=== PATIENT | male | born 1955 | race Two or more races ===

== ENCOUNTER 2017-02-21 15:30 | Emergency (ER) | payer OTHER ==
[~2017-02-21] VITALS: Ht 182.9 cm; Wt 74.8 kg
[2017-02-21] MEDS ORDERED: QUETIAPINE FUMA25 MG ORAL (15:42)
[2017-02-21] MEDS ORDERED: DILANTIN100 MG ORAL (15:42)
[2017-02-21] MEDS ORDERED: TRAZODONE HCL150 MG ORAL (15:42)
[2017-02-21] MEDS ORDERED: DEPAKOTE250 MG PO (15:42)
[2017-02-21 17:06] VITALS: BP 137/78
[2017-02-21 17:15] LABS: EOSINOPHILS % (AUTO) 0.7 % (0.0-3.0); LYMPHOCYTES % (AUTO) 31.2 % (20.0-45.0); MEAN CORPUSCULAR HEMOGLOBIN 31.5 PG (27.0-31.0); MEAN CORPUSCULAR HGB CONC 35.4 G/DL (32.0-36.0); MEAN CORPUSCULAR VOLUME 89 FL (80-99); MEAN PLATELET VOLUME 5.8 FL (6.5-10.1); MONOCYTES % (AUTO) 9.2 % (1.0-10.0); NEUTROPHILS % (AUTO) 57.9 % (45.0-75.0); PLATELET COUNT 194 K/UL (150-450); RED BLOOD COUNT 3.74 M/UL (4.70-6.10); RED CELL DISTRIBUTION WIDTH 15.3 % (11.6-14.8); WHITE BLOOD COUNT 4.4 K/UL (4.8-10.8)
[2017-02-21 17:37] LABS: ACETAMINOPHEN < 10 ug/mL (10-30); ALANINE AMINOTRANSFERASE 27 U/L (3-41); ALBUMIN/GLOBULIN RATIO 1.5 (1.0-2.7); ALCOHOL < 10 mg/dL; ANION GAP 17 (5-15); ASPARTATE AMINO TRANSFERASE 48 U/L (5-40); CALCIUM 9.9 mg/dL (8.6-10.2); CARBON DIOXIDE 25 mEQ/L (20-30); CHLORIDE 96 mEQ/L (98-107); CREATININE 1.1 mg/dL (0.7-1.2); GLOMERULAR FILTRATION RATE > 60 mL/min (>60); HEMOLYSIS 6; POTASSIUM 3.9 mEQ/L (3.4-4.9); SODIUM 138 mEQ/L (135-145); TOTAL PROTEIN 7.5 g/dL (6.6-8.7)
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
[2017-02-21 19:28] VITALS: BP 150/77
--- NOTE | 2017-02-22 12:11 | Emergency Room Report ---
History of Present Illness General Chief Complaint: Suicidal Source: Patient, Medical Record, PMD Present Illness HPI The pt is a 61 yo M with a hx of depression and drug use BIBA for possible SI. The pt himself called 911 due to an increased feeling of depression. He states that he has been taking all medications as directed and has seen psychiatrist within the past month. He denies previous attempts of suicide or self harm. He does admit to recent cocaine use. He states that he just feels tired and does not feel like doing anything with his life. He denies current thoughts of suicide or self harm or HI. He states he would like to go to a psychiatric facility. He denies any other sx such as N, V, F, chills, CP, SOB, dizziness, VAZQUEZ , abd pain, rash Allergies: Coded Allergies: No Known Allergies (Unverified , 02/21/17) Patient History Past Medical History: see triage record, psych hx - depression Past Surgical History: other Social History: Reports: drug use Reviewed Nursing Documentation: PMH: Agreed, PSxH: Agreed Nursing Documentation-PMH Past Medical History: No History, Except For History Of Psychiatric Problem: Yes - DEPRESSION, SUICIDAL IDEATION Hx Seizures: Yes Review of Systems All Other Systems: negative except mentioned in HPI Physical Exam Vital Signs Date Time Temp Pulse Resp B/P Pulse Ox O2 Delivery O2 Flow Rate FiO2 02/21/17 15:29 98.8 77 16 140/74 98 Room Air Sp02 EP Interpretation: reviewed, normal General Appearance: no apparent distress, alert, GCS 15, non-toxic Head: normocephalic, atraumatic Eyes: bilateral eye PERRL, bilateral eye normal inspection ENT: hearing grossly normal, normal pharynx, no angioedema, normal voice Neck: full range of motion, supple/symm/no masses Respiratory: chest non-tender, lungs clear, normal breath sounds, speaking full sentences Cardiovascular #1: regular rate, rhythm, no edema Gastrointestinal: normal bowel sounds, non tender, soft, non-distended, no guarding, no rebound Neurologic: alert, oriented x3, responsive, motor strength/tone normal, sensory intact, normal gait, speech normal Psychiatric: judgement/insight normal, memory normal, mood/affect normal, no suicidal/homicidal ideation Skin: normal color, no rash, warm/dry, well hydrated Lymphatic: no adenopathy Medical Decision Making PA Attestation Dr. Randall is my supervising physician. Patient management was discussed with my supervising physician Diagnostic Impression: Primary Impression: Depression Qualified Codes: F32.9 - Major depressive disorder, single episode, unspecified ER Course The patient is a 61-year-old male presenting for possible suicidal ideation Differential diagnoses considered but not limited to suicidal ideation, homicidal ideation, depression, anxiety, drug use PE: No apparent distress. A&Ox4 PERRL. EOMI. Normal mentation. RRR. No MRG Lungs CTA bilat Abdomen: Normal appearance. Non distended. No ecchymosis. Normal BS. Non TTP. No McBurney point tenderness. No guarding. Skin is warm and dry, no rashes. CBC and CMP unremarkable. UDS + for amphetamines and cocaine Although pt is not currently exhibiting SI, Dr. Allison was consulted for further evaluation. She has psychiatrically cleared the patient and informed him he needs to FU with psychiatrist MANUEL. Please see her note. She recommends the patient have one dose of risperdal in the ER. Pt agrees with plan and will be DC'ed home ER precautions given Laboratory Tests Test 02/21/17 16:52 White Blood Count 4.4 K/UL (4.8-10.8) L Red Blood Count 3.74 M/UL (4.70-6.10) L Hemoglobin 11.8 G/DL (14.2-18.0) L Hematocrit 33.3 % (42.0-52.0) L Mean Corpuscular Volume 89 FL (80-99) Mean Corpuscular Hemoglobin 31.5 PG (27.0-31.0) H Mean Corpuscular Hemoglobin Concent 35.4 G/DL (32.0-36.0) Red Cell Distribution Width 15.3 % (11.6-14.8) H Platelet Count 194 K/UL (150-450) Mean Platelet Volume 5.8 FL (6.5-10.1) L Neutrophils (%) (Auto) 57.9 % (45.0-75.0) Lymphocytes (%) (Auto) 31.2 % (20.0-45.0) Monocytes (%) (Auto) 9.2 % (1.0-10.0) Eosinophils (%) (Auto) 0.7 % (0.0-3.0) Basophils (%) (Auto) 1.0 % (0.0-2.0) Sodium Level 138 mEQ/L (135-145) Potassium Level 3.9 mEQ/L (3.4-4.9) Chloride Level 96 mEQ/L (98-107) L Carbon Dioxide Level 25 mEQ/L (20-30) Anion Gap 17 (5-15) H Blood Urea Nitrogen 11 mg/dL (7-23) Creatinine 1.1 mg/dL (0.7-1.2) Estimate Glomerular Filtration Rate > 60 mL/min (>60) Glucose Level 97 mg/dL (74-106) Calcium Level 9.9 mg/dL (8.6-10.2) Total Bilirubin 0.7 mg/dL (0.0-1.2) Aspartate Amino Transferase (AST) 48 U/L (5-40) H Alanine Aminotransferase (ALT) 27 U/L (3-41) Alkaline Phosphatase 63 U/L (40-129) Total Protein 7.5 g/dL (6.6-8.7) Albumin 4.5 g/dL (3.5-5.2) Globulin 3.0 g/dL Albumin/Globulin Ratio 1.5 (1.0-2.7) Salicylates Level < 1 mg/dL (10-30) L Urine Opiates Screen Negative (NEGATIVE) Acetaminophen Level < 10 ug/mL (10-30) L Urine Barbiturates Screen Negative (NEGATIVE) Phencyclidine (PCP) Screen Negative (NEGATIVE) Urine Amphetamines Screen Positive (NEGATIVE) H Urine Benzodiazepines Screen Negative (NEGATIVE) Urine Cocaine Screen Positive (NEGATIVE) H Urine Marijuana (THC) Screen Negative (NEGATIVE) Serum Alcohol < 10 mg/dL Lab Results Impression CBC and CMP unremarkable. UDS + for amphetamines and cocaine Last Vital Signs Date Time Temp Pulse Resp B/P Pulse Ox O2 Delivery O2 Flow Rate FiO2 02/21/17 19:28 95 18 150/77 98 02/21/17 17:06 98.7 Room Air Status: improved Disposition: HOME, SELF-CARE Condition: Stable Patient Instructions: Depression, Adult Additional Instructions: I discussed my findings with the patient. All questions and concerns have been answered. Treatment and medication compliance have been addressed. I advised the patient that they need to follow up with PMD in 3-5 days. Return to ED if symptoms worsen, new symptoms arise, or if needed for any reason. Patient verbalized understanding of discharge instructions. The patient will need to followup with psychiatry as soon as possible TOSIN PRIDE Feb 22, 2017 12:11
== END 2017-02-21 22:20 | disposition home or self-care (01) ==
LOC: EDBD 15:30 → EMR 16:43
DX: F32.9 Major depressive disorder, single episode, unspecified (principal); F15.90 Other stimulant use, unspecified, uncomplicated; F14.90 Cocaine use, unspecified, uncomplicated
CPT/HCPCS: 36415; 80053; 80300; 80329; 85025; 99282